=== PATIENT | male | born 1985 ===

== ENCOUNTER 2017-01-03 12:57 | Emergency (ER) | payer SELFPAY ==
[~2017-01-03] VITALS: Ht 170.2 cm; Wt 84.0 kg
[2017-01-03 12:59] VITALS: BP 146/91; PULSE 80; RESP 16; TEMP 98.5; O2SAT 98
--- NOTE | 2017-01-03 13:32 | PD ---
HPI Chief Complaint: Medication Refill Request Time Seen by Provider: 13:15 Travel History International Travel<30 days: No Contact w/Intl Traveler<30days: No Traveled to known affect area: No History of Present Illness HPI Patient is a 31-year-old male presenting to the emergency department for a refill of his Klonopin and oxycodone. Patient states he is working down here for 6 weeks, he has 3 weeks left in the state and is [place] to get [place] No other complaints at this time. PFSH Past Medical History Musculoskeletal: Yes Social History Alcohol Use: Yes Tobacco Use: Yes Substance Use: No Review of Systems Except as stated in HPI: all other systems reviewed are Neg Physical Exam Exam Limitations: Left before Exam Complete Narrative Physical examination was not performed in its entirety due to patient eloping from the emergency department prior to exam being performed. Data Data Last Documented VS Vital Signs Date Time Temp Pulse Resp B/P Pulse Ox O2 Delivery O2 Flow Rate FiO2 01/03/17 12:59 98.5 80 16 146/91 98 Room Air MDM Medical Decision Making Medical Screen Exam Complete: Yes Emergency Medical Condition: No Interpretation(s) Vital Signs Date Time Temp Pulse Resp B/P Pulse Ox O2 Delivery O2 Flow Rate FiO2 01/03/17 12:59 98.5 80 16 146/91 98 Room Air Differential Diagnosis Medication refill versus chronic pain versus malingering versus other Narrative Course Patient is a 31-year-old male presenting to the emergency department for refill of his Klonopin and oxycodone. Was advised that is not our policy to refill narcotic or controlled substances. Patient asked if he could go to another hospital I told him he was free to go anywhere he would like to. 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 I then asked if he would like to speak with my attending physician, he said yes. I went to speak with Dr. Gibbons. When I returned patient was no longer in the room. Diagnosis Primary Impression: Encounter for medical screening examination Condition: Stable Mariah Candelaria Jan 03, 2017 13:32
== END 2017-01-03 13:59 | disposition left against medical advice (07) ==
LOC: NEPB 12:57
DX: Z76.0 Encounter for issue of repeat prescription (principal); Z72.0 Tobacco use
CPT/HCPCS: 99281